=== PATIENT | female | born 1940 | race Caucasian/White ===

== ENCOUNTER 2017-02-07 09:33 | Day surgery (SDC) | payer OTHER ==
[2017-02-07] MEDS ORDERED: PROP20TA4 PO (10:07)
[2017-02-07] MEDS ORDERED: ATEN50TA PO (10:07)
[2017-02-07 10:21] VITALS: BP 198/86; PULSE 76; RESP 21
--- NOTE | 2017-02-07 11:37 | OPPN ---
Date/Time of Note Date/Time of Note DATE: 02/07/17 TIME: 11:32 Proc Note GI Procedure date: Feb 07, 2017 Pre-procedure Diagnosis Colon polyp Post-procedure Diagnosis Cecal polyp Operation Performed Colonoscopy Surgeon: PELON JIMENEZ MD Anesthesia Type: moderate sedation Estimated blood loss: none Transfusion Required: no Specimen: none Grafts/Implants: none Grafts/Implants None Tubes/Drains None none Complications: no Complications None Indications Screening colonoscopy Operative\Procedure Findings Colonoscopy Procedure Description Dr. Jimenez dictating the operative procedure in a patient by name Donald sarmiento after informed written consent is obtained patient was ostial in the left lateral side 3 mg Versed 75 mcg of fentanyl was given as intravenous anesthesia The patient become somnolent Olympus video colonoscope was introduced into the rectum and advanced all the way to the cecum 3 mm flat polyp was noted in the cecum This polyp was removed with the help of a cold biopsy forceps Rest of the colon was examined thoroughly entered the rest of the colon appeared normal Revealed minimal external hemorrhoids were noted and also minimal internal hemorrhoids noted And at this time scope was withdrawn and the procedure was terminated And recommend wait for the pathology report End of dictation please send copy to my office and also to Dr.elinita osullivan was removed with the help of a biopsy forceps PELON Andrews MD Feb 07, 2017 11:37
[2017-02-07 12:00] VITALS: BP 140/65; RESP 27
[2017-02-07] MEDS ORDERED: FENTAnyl 50 MCG/ML VIAL ONE (12:12)
[2017-02-07] MEDS ORDERED: MIDAZOLAM 1 MG/ML 2 ML INJ ONE ×2 (12:12)
== END 2017-02-10 08:44 | disposition home or self-care (01) ==
LOC: GIL 09:33
PROVIDERS: ATTEND Internal Medicine Gastroenterology
DX: Z12.11 Encounter for screening for malignant neoplasm of colon (principal); D12.0 Benign neoplasm of cecum
CPT/HCPCS: 45380; 88305; J2250; J3010; Z7610

== ENCOUNTER 2017-06-10 06:46 | Day surgery (SDC) | payer OTHER ==
--- NOTE | 2017-06-09 10:46 | PREOPHP ---
DATE OF ADMISSION: 06/10/2017 HISTORY OF PRESENT ILLNESS: This 76-year-old patient is admitted for elective cataract surgery of t he right eye. The patient has had progressive deterioration of vision in both eyes with no prior hi story of eye disease or injury. The patient does have a history of diet-controlled diabetes mellitu s as well as having systemic hypertension and hypercholesterolemia. CURRENT MEDICATIONS: 1. Includes Benazepril. 2. Propranolol. 3. Atorvastatin. ALLERGIES: THERE ARE NO KNOWN ALLERGIES. PHYSICAL EXAMINATION: Visual acuity best corrected is 20/80 in the right eye and 20/40 in the left eye. Slit lamp examination reveals anterior cortical nuclear sclerotic and posterior subcapsular ca taract in the right eye. The left eye has a lesser cataract. The patient also has bilateral ptosis of the upper eyelids, which is moderate in extent. Applanation tonometry is 15 mmHg. Examination of the retina is within normal limits. DIAGNOSIS: Cataract, right eye. PLAN: Cataract extraction with lens implant, right eye. The risks and alternatives to the surgery have been discussed with the patient as well as the hope for improvement of visual acuity leading to a greater ability to perform activities of daily living. The patient understands this and agrees t o proceed with surgery. Dictated By: EMILIE LUIS/ELSIE Conf#: [id number] DID#: [id number]
[~2017-06-10 06:46] MED LIST: ATEN50TA PO; BROMFENAC SODIUM 1.7 ML OPH DROP OPER SCH; CYCLOPENTOLATE/PHENYLEPH 2 ML OPH OPER SCH; MOXIFLOXACIN 0.5% 3 ML OPH OPER SCH; PROP20TA4 PO; SOD CHLORIDE 0.9% 1,000 ML IV SCH; TROPICAMIDE 1% 3 ML OPH OPER SCH
[2017-06-10] MEDS ORDERED: CEFAZOLIN 1 GM INJ ONE (07:09)
[2017-06-10] MEDS ORDERED: DEXAMETHASONE 4 MG/ML 1 ML INJ ONE (07:09)
[2017-06-10] MEDS ORDERED: GENTAMICIN 80 MG INJ ONE (07:09)
[2017-06-10] MEDS ORDERED: CARBACHOL 0.01% 1.5 ML OPH INJ ONE (07:09)
[2017-06-10] MEDS ORDERED: EPINEPHrine 1 MG INJ ONE (07:09)
[2017-06-10] MEDS ORDERED: LIDOCAINE 4% (MPF) 5 ML INJ ONE (07:09)
== END 2017-06-10 08:20 | disposition home or self-care (01) ==
LOC: SDS 06:46
PROVIDERS: ATTEND Ophthalmology
DX: H25.11 Age-related nuclear cataract, right eye (principal); Z53.9 Procedure and treatment not carried out, unspecified reason; I10 Essential (primary) hypertension; E78.00 Pure hypercholesterolemia, unspecified
CPT/HCPCS: J0171; J0690; J1100; J1580; Z7610

== ENCOUNTER 2018-04-14 05:41 | Day surgery (SDC) | END 2018-04-14 09:50 | disposition home or self-care (01) ==